=== PATIENT | male | born 1955 | race Caucasian/White ===

== ENCOUNTER → 2018-11-20 | Outpatient (CLI) | payer OTHER ==
[~2018-11-20] MED LIST: HYDR-2132 PO; MULT1CAP32 PO; PRAV20TA4 PO; RIVA10TA PO; TAMS0.4C32 PO
== END | disposition home or self-care (01) ==
LOC: OIH 13:35
PROVIDERS: ATTEND Nurse Practitioner Adult Health
DX: Z13.6 Encounter for screening for cardiovascular disorders (principal)
CPT/HCPCS: 75571